=== PATIENT | male | born 1945 | race Caucasian/White ===

== ENCOUNTER 2017-03-03 15:24 | Outpatient (CLI) | payer MEDICARE, BC ==
--- NOTE | 2017-03-03 18:34 | MRI ---
MRI CERVICAL SPINE WITHOUT CONTRAST: 03/03/17 Multiplanar and multisequential imaging cervical spine obtained. HISTORY: Cervical radiculopathy. Right sided neck pain with radiation to shoulder. The exam is degraded due to motion artifact on all sequences. FINDINGS: Cervical vertebrae maintain normal height and alignment. There are mild to moderate degenerative varner ges apparent. There is loss of disc space at C5-6 and C6-7. Mild anterior osteophytes in the cervical vertebrae. No significant disc bulge or spondylosis seen at C2-3 or C3-4. At C4-5, minimal disc bulge and spondy losis. Anterior subarachnoid space is preserved. At C5-6, there is asymmetric disc bulge and spondylolytic change centrally and paracentrally to the l eft flattening the anterior thecal sac and abutting the anterior cord. There is evidence of left fora renee encroachment due to these changes. At C6-7, disc bulge and spondylolytic change abut the cord at this level and produce bilateral forami nal encroachment due to associated uncinate hypertrophy. Cord signal appears normally maintained. IMPRESSION: Disc bulge and spondylosis most pronounced ate C5-6 and C6-7 as described above. POS: [facility]
== END 2017-03-03 15:25 | disposition home or self-care (01) ==
LOC: MRI 15:24
PROVIDERS: ATTEND Psychiatry & Neurology Neurology
DX: M47.22 Other spondylosis with radiculopathy, cervical region (principal); M50.121 Cervical disc disorder at C4-C5 level with radiculopathy; M50.122 Cervical disc disorder at C5-C6 level with radiculopathy
CPT/HCPCS: 72141

== ENCOUNTER 2018-10-05 14:51 | Outpatient (CLI) | payer MEDICARE, OTHER | END 2018-10-05 14:52 | disposition home or self-care (01) | LOC: CTENTCT 14:51 | PROVIDERS: ATTEND Otolaryngology Plastic Surgery within the Head & Neck | DX: J01.80 Other acute sinusitis (principal) | CPT/HCPCS: 70486 ==